=== PATIENT | male | born 1990 | race Caucasian/White ===

== ENCOUNTER 2022-02-13 15:10 | Emergency (ER) | payer SELFPAY ==
[2022-02-13 15:30] VITALS: BP 121/80; PULSE 94
== END 2022-02-13 16:08 | disposition home or self-care (01) ==
LOC: MW.ED 15:10
DX: L25.9 Unspecified contact dermatitis, unspecified cause (principal)
CPT/HCPCS: 99282

== ENCOUNTER 2023-04-11 20:41 | Emergency (ER) | payer SELFPAY ==
[2023-04-11] MEDS ORDERED: Diphtheria,Pertussis(Acell),Tetanus Vaccine 0.5 ML Syringe IM ONE (20:48)
[2023-04-11] MEDS ORDERED: Lidocaine 1% 5 ML VIAL INJECT ONE ×2 (21:16→23:18)
[2023-04-11] MEDS ORDERED: ceFAZolin 2 GM in Sodium Chloride 0.9% 50 ML IV ONE (21:57)
[2023-04-11] MEDS ORDERED: Morphine 4 MG/ML Syringe IVPUSH ONE (22:04)
[2023-04-11 22:16] LABS: BASOPHILS ABSOLUTE AUTO 0.04 K/uL (0.00-0.20); BASOPHILS PERCENT AUTO 0.4 % (0.0-1.0); EOSINOPHILS ABSOLUTE AUTO 0.13 K/uL (0.00-0.45); EOSINOPHILS PERCENT AUTO 1.2 % (0.0-6.0); HEMATOCRIT 41.6 % (42.0-52.0); HEMOGLOBIN 14.5 g/dL (14.0-18.0); IMMATURE GRAN ABSOLUTE AUTO 0.05 K/uL (0.00-0.05); IMMATURE GRAN PERCENT AUTO 0.4 % (0.0-0.4); LYMPHOCYTES ABSOLUTE AUTO 1.99 K/uL (1.00-4.80); LYMPHOCYTES PERCENT AUTO 17.7 % (24.0-44.0); MEAN CORPUSCULAR HEMOGLOBIN 30.7 pg (28.0-32.0); MEAN CORPUSCULAR HGB CONC 34.9 g/dL (32.0-36.0); MEAN CORPUSCULAR VOLUME 87.9 fL (83.0-99.0); MEAN PLATELET VOLUME 9.4 fL (9.4-12.4); MONOCYTES ABSOLUTE AUTO 0.72 K/uL (0.00-0.80); MONOCYTES PERCENT AUTO 6.4 % (0.0-8.0); NEUTROPHILS ABSOLUTE AUTO 8.34 K/uL (1.80-7.70); NEUTROPHILS PERCENT AUTO 73.9 % (41.0-71.0); PLATELET COUNT,PLT 276 K/uL (150-400); RED BLOOD CELL COUNT 4.73 M/uL (4.52-5.90); WHITE BLOOD CELL COUNT,WBC 11.27 K/uL (3.9-11.3)
[2023-04-11 22:30] LABS: CALCIUM 8.9 mg/dL (8.5-10.1); CARBON DIOXIDE,CO2 31.1 mmol/L (21.0-32.0); CREATININE 1.1 mg/dL (0.8-1.3); EST CRCL DRUG DOSING (CG) 99.55 mL/min; POTASSIUM,K 4.3 mmol/L (3.5-5.1)
[2023-04-11] MEDS ORDERED: LORazepam 2 MG/ML SDV IVPUSH ONE (23:31)
[2023-04-12] MEDS ORDERED: Acetaminophen/HYDROcodone 325-10 MG Tab PO ONE (00:57)
[2023-04-12 01:01] VITALS: BP 137/79; PULSE 87
== END 2023-04-12 01:02 | disposition home or self-care (01) ==
LOC: MW.ED 20:41
DX: S61.012A Laceration without foreign body of left thumb without damage to nail, initial encounter (principal); Z23 Encounter for immunization; Z72.0 Tobacco use; W22.8XXA Striking against or struck by other objects, initial encounter
CPT/HCPCS: 12002; 36415; 73140; 80048; 85025; 90471; 90715; 96365; 96375; 99283; A9270; J0690; J2060; J2270; J3490; 99284